=== PATIENT | female | born 1970 | race Two or more races ===

== ENCOUNTER 2016-09-12 04:08 | Emergency (ER) | payer SELFPAY ==
[~2016-09-12] VITALS: Ht 152.4 cm; Wt 73.9 kg
[2016-09-12 04:38] LABS: MEAN CORPUSCULAR HEMOGLOBIN 28.4 PG (27.0-31.0); MEAN CORPUSCULAR HGB CONC 32.4 G/DL (32.0-36.0); MEAN CORPUSCULAR VOLUME 88 FL (80-99); MEAN PLATELET VOLUME 6.9 FL (6.5-10.1); PLATELET COUNT 416 K/UL (150-450); RED BLOOD COUNT 5.02 M/UL (4.20-5.40); RED CELL DISTRIBUTION WIDTH 14.9 % (11.6-14.8); WHITE BLOOD COUNT 13.5 K/UL (4.8-10.8)
[2016-09-12 04:58] LABS: ACETAMINOPHEN < 10 ug/mL (10-30); ALANINE AMINOTRANSFERASE 24 U/L (3-33); ALBUMIN/GLOBULIN RATIO 1.1 (1.0-2.7); ALCOHOL < 10 mg/dL; ANION GAP 23 (5-15); ASPARTATE AMINO TRANSFERASE 37 U/L (5-40); CARBON DIOXIDE 17 mEQ/L (20-30); CHLORIDE 99 mEQ/L (98-107); GLOMERULAR FILTRATION RATE > 60 mL/min (>60); HEMOLYSIS 7; POTASSIUM 3.9 mEQ/L (3.4-4.9); SODIUM 139 mEQ/L (135-145); TOTAL PROTEIN 9.2 g/dL (6.6-8.7)
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
[2016-09-12 05:32] VITALS: BP 129/93
[2016-09-12 06:57] VITALS: BP 118/79
[2016-09-12 08:19] VITALS: BP 131/93
[2016-09-12 11:07] LABS: BASOPHILS % (AUTO) 0.6 % (0.0-2.0); LYMPHOCYTES % (AUTO) 16.6 % (20.0-45.0); MEAN CORPUSCULAR HEMOGLOBIN 27.9 PG (27.0-31.0); MEAN CORPUSCULAR HGB CONC 31.8 G/DL (32.0-36.0); MEAN CORPUSCULAR VOLUME 88 FL (80-99); MEAN PLATELET VOLUME 6.7 FL (6.5-10.1); MONOCYTES % (AUTO) 5.5 % (1.0-10.0); NEUTROPHILS % (AUTO) 77.4 % (45.0-75.0); PLATELET COUNT 378 K/UL (150-450); RED CELL DISTRIBUTION WIDTH 14.9 % (11.6-14.8); WHITE BLOOD COUNT 10.8 K/UL (4.8-10.8)
[2016-09-12 11:44] LABS: APPEARANCE,URINE CLOUDY; KETONES,URINE NEGATIVE (NEGATIVE); LEUKOCYTE ESTERASE ,URINE 1+ (NEGATIVE); NITRITE,URINE NEGATIVE (NEGATIVE); PH,URINE 6 (4.5-8.0); PROTEIN,URINE 2+ (NEGATIVE); UROBILINOGEN,URINE NORMAL MG/DL (0.0-1.0)
[2016-09-12 12:01] LABS: BACTERIA,URINE MANY /HPF; RBC,URINE 0-2 /HPF (0 - 2); SQUAMOUS EPITHELIAL CELL,UR FEW /LPF (NONE/OCC); WBC,URINE 15-20 /HPF (0 - 2)
[2016-09-12 12:42] VITALS: BP 128/91
[2016-09-12 13:28] VITALS: BP 128/91
--- NOTE | 2016-09-13 18:55 | Cardiology Report ---
APPROVED REPORT EKG Measurement Heart [id number] CO 140P32 [id number] Sinus tachycardia Prolonged QT Abnormal ECG
[2016-09-14] MEDS ORDERED: KEFLEX500 MG ORAL (07:20)
== END 2016-09-12 13:30 ==
LOC: EDBD 04:08 → EMR 05:00
DX: T14.91 Suicide attempt (principal); T39.312A Poisoning by propionic acid derivatives, intentional self-harm, initial encounter; N17.9 Acute kidney failure, unspecified; I45.81 Long QT syndrome; Y92.9 Unspecified place or not applicable
CPT/HCPCS: 36415; 80053; 80300; 81003; 81025; 82962; 85025; 87086; 87181; 93005; 96374; 99285; G0480; 80329